=== PATIENT | male | born 1980 | race African-American/Black ===

== ENCOUNTER 2024-01-05 21:34 | Emergency (ER) | payer MEDICAID ==
[~2024-01-05] VITALS: Ht 182.9 cm; Wt 113.0 kg
[2024-01-05 21:38] VITALS: BP 126/84; RESP 20; TEMP 98.4; O2SAT 99
[2024-01-05 21:39] VITALS: PULSE 113
[2024-01-05 22:40] LABS: BASOPHILS % 1.3 % (0.0-2.0); EOSINOPHILS % 1.4 % (0.0-5.0); HEMATOCRIT. 46.4 % (42.0-52.0); HEMOGLOBIN. 15.4 g/dL (14.0-18.0); LYMPHOCYTES % 58.8 % (20.0-50.0); MEAN CORPUSCULAR HEMOGLOBIN 30.8 pg (28.0-32.0); MEAN CORPUSCULAR HGB CONC 33.2 g/dL (31.0-37.0); MEAN PLATELET VOLUME 9.1 fl (7.4-10.4); MONOCYTES % 6.1 % (2.0-8.0); NEUTROPHILS % 32.4 % (40.0-76.0); PLATELET 278 x1000/uL (130-400); RED BLOOD CELL COUNT 4.99 mill/uL (4.7-6.1); RED CELL DISTRIBUTION WIDTH 14.7 % (11.6-14.6); WHITE BLOOD COUNT 6.9 x1000/uL (4.5-11.0)
[2024-01-05 22:48] LABS: CHLORIDE 104 mEq/L (98-107); POTASSIUM 3.8 mEq/L (3.5-5.1); SODIUM 139 mEq/L (136-145)
[2024-01-05 22:49] LABS: CARBON DIOXIDE 23 mEq/L (21-32)
[2024-01-05 22:50] LABS: CALCIUM 9.6 mg/dL (8.7-10.4)
[2024-01-05 22:54] LABS: GLUCOSE 95 mg/dL (70-105)
[2024-01-05 22:55] LABS: UREA NITROGEN BLOOD 10 mg/dL (9-23)
[2024-01-05 22:56] LABS: ALANINE AMINOTRANSFERASE 22 IU/L (10-49); ALBUMIN 5.3 g/dL (3.2-4.8); ASPARTATE AMINOTRANSFERASE 24 IU/L (<34); BILIRUBIN TOTAL 0.3 mg/dL (0.1-1.0); PROTEIN TOTAL 8.1 g/dL (6.0-8.3); TROPONIN I HIGH SENSITIVITY < 4 ng/L (3.0-53)
[2024-01-05 22:57] LABS: BILIRUBIN DIRECT < 0.1 mg/dL (<=3.0)
[2024-01-05] MEDS ORDERED: SODIUM CHLORIDE 0.9% 1,000 ML IV ONE (23:15)
[2024-01-05 23:41] LABS: D-DIMER < 0.19 mg/L FEU (<0.50); INR 0.9; PROTHROMBIN TIME 10.2 sec (9.6-11.0)
== END 2024-01-05 23:54 | disposition left against medical advice (07) ==
LOC: ER 21:34
DX: R06.02 Shortness of breath (principal); R07.89 Other chest pain; J45.909 Unspecified asthma, uncomplicated
CPT/HCPCS: 36415; 71045; 80048; 80076; 83880; 84484; 85025; 85379; 93005; 99285